=== PATIENT | female | born 1940 | race Caucasian/White ===

== ENCOUNTER 2016-05-19 08:33 | Emergency (ER) | payer OTHER ==
[2016-05-19 09:05] VITALS: BP 101/53
--- NOTE | 2016-05-19 09:18 | UC ---
Lower Extremity/Ankle HPI - HPI Summary HPI Summary: Slipped on wet floor and fell two days ago. "I banged my shoulder on the counter ... 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 Was prescribed hydrocodone. Patient did not have foot examined because she was most concerned about shoulder. Left lateral foot pain aggravated by walking. Swelling to top of foot. Mild point tenderness. Pain at 5th metatarsal, hurts some with bearing weight. Here with her Randy. They are both very active. She is here mainly to make sure it is safe for her to be ambulatory. Does have h/o remote ankle frx on left with pin removed 3 wks ago. feels fine o/w. - History of Current Complaint Chief Complaint: UCLowerExtremity Stated Complaint: LEFT FOOT PAIN Time Seen by Provider: 05/19/16 08:37 - Allergies/Home Medications Allergies/Adverse Reactions: Allergies Allergy/AdvReac Type Severity Reaction Status Date / Time Crystaline Sulfa AdvReac "As a Uncoded 05/19/16 08:45 child ... cut up my kidneys" PMH/Surg Hx/FS Hx/Imm Hx Previously Healthy: Yes Cardiovascular History Of: Reports: Hypertension Cancer History Of: Denies: Breast Cancer - Surgical History Surgical History: Yes Surgery Procedure, Year, and Place: left ankle and 01/2016 to have screw removed; b/l shoulder replaced, left hip; left wrist plate; pelvic fxs with metal - Family History Known Family History: Positive: Hypertension Negative: Cardiac Disease, Diabetes - Social History Alcohol Use: None Substance Use Type: None Smoking Status (MU): Never Smoked Tobacco - Immunization History Most Recent Influenza Vaccination: Current for the Review of Systems Constitutional: Negative Skin: Negative Eyes: Negative ENT: Negative Respiratory: Negative Cardiovascular: Negative Gastrointestinal: Negative Genitourinary: Negative Motor: Negative Neurovascular: Negative Musculoskeletal: Other: - see above. Neurological: Negative Psychological: Negative All Other Systems Reviewed And Are Negative: Yes Physical Exam Triage Information Reviewed: Yes Appearance: Well-Appearing, No Pain Distress, Well-Nourished - very pleasant. Vital Signs: Initial Vital Signs Temp 98.8 F 05/19/16 08:40 Pulse 64 05/19/16 08:40 Resp 16 05/19/16 08:40 BP 101/53 05/19/16 08:40 Pulse Ox 97 05/19/16 08:40 Vital Signs Reviewed: Yes Eye Exam: Normal ENT Exam: Normal Neck exam: Normal Respiratory: Positive: Lungs clear, No respiratory distress Cardiovascular Exam: Normal Cardiovascular: Positive: RRR, No Murmur, Pulses Normal Abdominal Exam: Normal Abdomen Description: Positive: Nontender, Soft Musculoskeletal: Positive: Other: - left foot with mild tenderness over mid 5th dorsal metatarsal. no plantar or lateral tenderness. CR brisk, sensation intact. Good ROM. no swelling apparent. Neurological Exam: Normal Psychological Exam: Normal Skin Exam: Normal Lower Extremity Course/Dx - Course Course Of Treatment: xray left foot - OA, ostepenia. re-xray at 2 wks if still with pain. no frx evident at this time. reviewed this with them. - Differential Dx/Diagnosis Differential Diagnosis/HQI/PQRI: Fracture (Closed), Sprain, Strain, Tendonitis Provider Diagnoses: left foot sprain Discharge - Discharge Plan Condition: Stable Disposition: HOME Patient Education Materials: Foot Sprain (ED) Referrals: González Randhawa MD [Primary Care Provider] - Additional Instructions: You can keep your 10 day f/u with ortho at [facility]. We discussed xray report and have printed a copy for you. We also made a CD with the images for you to take with you. xrays should be repeated if symptoms increase or persist. Ice, rest and avoid excessive activity until pain resolves. Use a firm soled shoe.
--- NOTE | 2016-05-19 09:23 | RAD ---
HISTORY: Fall, left fifth metatarsal pain COMPARISONS: None VIEWS: 3, Frontal, lateral, and oblique views of the left foot FINDINGS: BONE DENSITY: There is diffuse osteopenia. BONES: There is no displaced fracture. JOINTS: There is advanced osteoarthritis of the midfoot and hindfoot and ankle. ALIGNMENT: There is no dislocation. SOFT TISSUES: Unremarkable. OTHER FINDINGS: None. IMPRESSION: 1. OSTEOPENIA. 2. ADVANCED OSTEOARTHRITIS. 3. NO ACUTE OSSEOUS INJURY. THE DEGREE OF OSTEOPENIA MAY MAKE A NONDISPLACED FRACTURE RADIOGRAPHICALLY OCCULT. IF SYMPTOMS PERSIST, RECOMMEND REPEAT IMAGING
== END 2016-05-19 09:32 | disposition home or self-care (01) ==
LOC: UCCORT 08:33
DX: S93.602A Unspecified sprain of left foot, initial encounter (principal); W01.0XXA Fall on same level from slipping, tripping and stumbling without subsequent striking against object, initial encounter; Y92.9 Unspecified place or not applicable; M85.872 Other specified disorders of bone density and structure, left ankle and foot; M19.072 Primary osteoarthritis, left ankle and foot; Z88.2 Allergy status to sulfonamides; I10 Essential (primary) hypertension
CPT/HCPCS: 99211; G0463

== ENCOUNTER 2017-11-25 15:35 | Emergency (ER) | payer MEDICARE, OTHER ==
[2017-11-25 16:03] VITALS: BP 97/51
--- NOTE | 2017-11-25 16:37 | UC ---
General HPI - HPI Summary HPI Summary: Patient presents to urgent care with her . On 11/23, patient tripped on her dog. Patient sustained a nondisplaced acetabular fracture of her right hip. Patient was initially seen at [facility] and then transferred to [facility]. Patient was seen by corrections specialist there. Patient was discharged home. Patient was instructed to be minimal to no weightbearing. Patient was given prescription for Lortab 9 tablets. Patient's her to take one tablet every 8 hours. Patient was instructed to follow-up with primary care provider for analgesia and pain control. Patient states she has taken the hydrocodone 2 tablets in the morning and 2 tablets at night. Patient states she gets relief but that when it wears off she is in significant pain. Patient called her primary care office today and they be unable to prescribe her anything more. Patient has used the 9 tablets finish them last night. Patient did take 2 Tylenol this morning as well as 2 ibuprofen with mild improvement. Patient denies any numbness or tingling. No pain in calf. Patient came to urgent care desperation for analgesia control. Patient does take stool softeners routinely for constipation which is well-controlled at this time. Patient does take tramadol for sleeping at night. Patient has previously taken Percocet. Patient has a history of bilateral shoulder replacements, left carpal tunnel, and other surgeries requiring narcotics. Patient states she tolerates them well. Without any other complaints. Patient uses a walker to pivot to the bathroom. Patient does have crutches at home but has not tried using them. Patient's medications and discharge paperwork from [facility] reviewed I spoke with pharmacy and confirm the prescription and 9 Dispense without refills. I spoke with patient's PCP and confirmed the appointment 3 PM Saturday and no earlier appointments. - History of Current Complaint Chief Complaint: UCTrauma Stated Complaint: FRACTURE RT HIP/ PAIN MEDS Time Seen by Provider: 11/25/17 15:46 Hx Obtained From: Patient Onset/Duration: Lasting Days Onset Severity: Mild Current Severity: Mild Pain Intensity: 4 - Allergy/Home Medications Allergies/Adverse Reactions: Allergies Allergy/AdvReac Type Severity Reaction Status Date / Time Crystaline Sulfa AdvReac "As a Uncoded 05/19/16 08:45 child ... cut up my kidneys" Home Medications: Home Medications Atorvastatin* [Lipitor 20 MG*] 20 mg PO DAILY 11/25/17 [History Confirmed ] Ibuprofen 600 mg PO Q8H 11/25/17 [History Confirmed 11/25/17] Metoprolol Succinate [Toprol Xl] 25 mg PO DAILY 11/25/17 [History Confirmed ] PMH/Surg Hx/FS Hx/Imm Hx Previously Healthy: Yes - Surgical History Surgical History: Yes Surgery Procedure, Year, and Place: left ankle and 01/2016 to have screw removed; b/l shoulder replaced, left hip; left wrist plate; pelvic fxs with metal - Family History Known Family History: Positive: Hypertension Negative: Cardiac Disease, Diabetes - Social History Occupation: Retired Lives: With Family Alcohol Use: None Substance Use Type: None Smoking Status (MU): Never Smoked Tobacco - Immunization History Most Recent Influenza Vaccination: Current for the Review of Systems Constitutional: Negative Musculoskeletal: Other: - Right hip pain poorly controlled All Other Systems Reviewed And Are Negative: Yes Physical Exam - Summary Physical Exam Summary: Vital Signs Reviewed: Yes A+Ox3, no distress Eyes: Conjunctiva Clear ENT: Hearing grossly normal neck: supple Respiratory: Positive: No respiratory distress, No accessory muscle use Cardiovascular: skin color reflect adequate perfusion 2+ DP, PT Musculoskeletal Exam: + SLE with mild discomfort + flex/ext knee, ankle +great toe extension. no calf tenderness Neurological: Positive: Alert, ambulatory without difficulty + gross sensation throughout Psychological: Positive: Normal Response To Family Skin: Positive: no rash, no ecchymosis Triage Information Reviewed: Yes Vital Signs: Initial Vital Signs Temp 98.8 F 11/25/17 15:54 Pulse 80 11/25/17 15:54 Resp 16 11/25/17 15:54 BP 97/51 11/25/17 15:54 Pulse Ox 95 11/25/17 15:54 Course/Dx - Course Course Of Treatment: Patient recently sustained a nondisplaced acid to the fracture of the right hip. Patient was discharged with 9 tablets of Lortab. Patient unable to get an appointment with her primary until Saturday. Patient has completed the Lortab. This provided adequate pain control however she has not left. Patient's primary unwilling to write prescription without seeing her. Patient came here for assistance. I had a very long discussion with patient and her regarding narcotic specifically opiates. Recommend the patient take 2 tablets every 8 hours. 2 tablets equates to 2 Lortab, 1 Lortab 1 [id number] Tylenol, or to Tylenol. Recommended patient also takes 600 mg of Motrin every 6-8 hours. Patient does take a baby aspirin but no other anticoagulants or NSAIDs. Recommend patient take with food. Discussed extensively with patient cannot take narcotics while taking tramadol. Also discussed with patient about sedative effects of narcotics. Patient will also be given a prescription for narcan. Consulted [facility]. Patient did have Percocet approximately 6 months ago after she injured her hand. Discussed with patient about stool softeners related to narcotic use. Discussed with patient about using a pillow to support under her knees and between her knees and she's on her side. Recommended patient try crutches. Patient comfortable in agreement with plan. Patient to go to the emergency Department with any questions or concerns. Patient and spouse comfortable and in full agreement with plan. Stated understanding. Pt given a prescription for 20 tablets of [place]. - Differential Dx - Multi-Symptom Provider Diagnoses: acute pain. subacute acetabular fracture, right Discharge - Sign-Out/Discharge Documenting (check all that apply): Patient Departure - Discharge Plan Condition: Stable Disposition: HOME Prescriptions: Hydrocodone/Acetaminophen [Hydrocodone-Acetamin 5-325 mg] 1 - 2 each PO Q8HR PRN #20 tablet MDD 6 PRN Reason: Severe Pain Naloxone Nasal Western* [Narcan Nasal Western] 4 mg NASAL ONCE PRN #1 nasal.spr PRN Reason: Sedation Patient Education Materials: Pain Management (ED), Hip Fracture (ED) Referrals: González Randhawa MD [Primary Care Provider] - (11/27/2017 at 3pm) Additional Instructions: - It is recommended that you take 2 tablets containing Tylenol every 8 hours. This means: 2 prescription hydrocodone OR one prescription hydrocodone +1 Tylenol OR 2 Tylenol tablets - Hydrocodone can cause sedation. It is recommended you do not take this medication at the same time you take trazodone - You have been given a prescription for Narcan. This medication reverses the sedating effects of hydrocodone. Your family member should medians insert an know how to use this. If you become sedated from this medication it is recommended the medication be used 911 be called - hydrocodone can cause constipation - use stool softners as needed - It is recommended you take ibuprofen (Motrin, Advil) 600 mg every 6-8 hours. Take with food to prevent stomach ulcers, irritation, and bleeding - It is recommended you try ambulation with crutches so that or not putting weight directly on this leg. - It is recommended that you place a pillow underneath her knees that are on her back or between her knees appear underside to help relieve some pressure from the hip and the muscles - Gently moved your knees and pump your ankles up-and-down several times a day and both legs to prevent blood clots - Keep your appointment with her doctor as scheduled at 3 PM on Saturday. Your doctor has placed you on a cancellation list and if they can see you sooner the office will call you - Contact her doctor call 911 or go to the emergency Department with any questions or concerns - Billing Disposition and Condition Condition: STABLE Disposition: Home
== END 2017-11-25 16:44 | disposition home or self-care (01) ==
LOC: UCCORT 15:35
DX: S32.401A Unspecified fracture of right acetabulum, initial encounter for closed fracture (principal); W01.0XXA Fall on same level from slipping, tripping and stumbling without subsequent striking against object, initial encounter; Y92.9 Unspecified place or not applicable
CPT/HCPCS: 99212; G0463

== ENCOUNTER 2018-09-27 15:39 | Emergency (ER) | payer OTHER ==
[2018-09-27 16:24] VITALS: BP 121/53
--- NOTE | 2018-09-27 16:40 | UC ---
General HPI - HPI Summary HPI Summary: for the past 2 weeks, the pt has noted some discomfort to her upper anterior knee and a sense of weakness to that area with walking. today, she had a tiny slip with her L leg while getting out of the show and noted a pop in the same knee. she had sudden nausea and light headed. she has ongoing anterior knee pain and swelling. - History of Current Complaint Chief Complaint: UCLowerExtremity Stated Complaint: LT KNEE INJURY Time Seen by Provider: 09/27/18 16:29 Hx Obtained From: Patient Onset/Duration: Sudden Onset Timing: Constant Pain Intensity: 7 Character: extending the leg and keeping it immobile. Aggravating: walking and movement. Associated Signs & Symptoms: Positive: Edema. Negative: Fever - Allergy/Home Medications Allergies/Adverse Reactions: Allergies Allergy/AdvReac Type Severity Reaction Status Date / Time Crystaline Sulfa AdvReac Unknown "As a Uncoded 09/27/18 16:08 child ... cut up my kidneys" Home Medications: Home Medications Calcium Citrate TAB* [Citracal TAB*] 200 mg PO BID 09/27/18 [History Confirmed 09/27/18] Naproxen Sodium [Aleve] 440 mg PO PRN 09/27/18 [History] PMH/Surg Hx/FS Hx/Imm Hx Endocrine History: Dyslipidemia Cardiovascular History: Hypertension Psychological History: Depression - Surgical History Surgical History: Yes Surgery Procedure, Year, and Place: left ankle and 01/2016 to have screw removed; b/l shoulder replaced, left hip; left wrist plate; pelvic fxs with metal. appendectomy - Family History Known Family History: Positive: Hypertension Negative: Cardiac Disease, Diabetes - Social History Lives: With Family Alcohol Use: None Substance Use Type: None Smoking Status (MU): Never Smoked Tobacco - Immunization History Most Recent Influenza Vaccination: Current for the Vaccination Up to Date: Yes Review of Systems All Other Systems Reviewed And Are Negative: No Constitutional: Negative: Fever Motor: Positive: Decreased ROM - L knee Musculoskeletal: Positive: Edema - L knee Neurological: Negative: Paresthesia, Numbness Physical Exam Triage Information Reviewed: Yes Appearance: Well-Appearing Vital Signs: Initial Vital Signs Temp 98.4 F 09/27/18 16:14 Pulse 62 09/27/18 16:14 Resp 16 09/27/18 16:14 BP 121/53 09/27/18 16:14 Pulse Ox 96 09/27/18 16:14 Vital Signs Reviewed: Yes Eyes: Positive: Conjunctiva Clear Respiratory: Positive: No respiratory distress Cardiovascular: Positive: RRR Musculoskeletal: Positive: Other: - LLE: hip non tender and limited rom from prior surgery per pt. knee has suprapatellar and anterior medial knee swelling. she is tender to the anterior knee and medial joint line. She is able to flex the knee but active extension is limited by pain and the limited rom in L hip( per pt). I am unable to fully assess the quadriceps. Below the knee is non tender and gross s/v/m functions are intact. Neurological: Positive: Alert Psychological: Positive: Normal Response To Family, Age Appropriate Behavior Skin Exam: Normal Diagnostics - Radiology No standard instances Radiology Interpretation Completed By: Radiologist - IMPRESSION: Chondrocalcinosis. There is suggestion of a fracture of the medial tibial plateau. Degenerative changes of the patellofemoral joint is noted. Course/Dx - Course Course Of Treatment: pt has taken hydrocodone in past for multiple surgical procedures and statse she takes up to 2 with no problems. - Differential Dx - Multi-Symptom Differential Diagnoses: Other - L KNEE EFFUSION AND TIBIAL PLATEAU FX ON XRAY. PT NOT A CANDIDATE FOR CRUTCHES AND HAS WHEELED WALKER WITH BRAKES WHICH SHE WILL USE. - Diagnoses Provider Diagnosis: Tibial plateau fracture, left Discharge - Sign-Out/Discharge Documenting (check all that apply): Patient Departure All imaging exams completed and their final reports reviewed: Yes - Discharge Plan Condition: Stable Disposition: HOME Prescriptions: Hydrocodone/Acetaminophen [Hydrocodone-Acetamin 5-325 mg] 1 each PO Q6H PRN #15 tablet MDD 4 PRN Reason: Pain Patient Education Materials: Leg Fracture (ED) Additional Instructions: FOLLOW UP WITH YOUR ORTHOPEDIST AT [facility] THIS COMING SATURDAY. USE THE IMMOBILER AT ALL TIMES. USE YOUR WALKER AT ALL TIMES. - Billing Disposition and Condition Condition: STABLE Disposition: Home
[2018-09-27] MEDS ORDERED: HYDROcodone/ACETAMIN 5-325 MG* 1 TAB PO ONE ×2 (16:43→18:12)
== END 2018-09-27 18:37 | disposition home or self-care (01) ==
LOC: UCCORT 15:39
DX: S82.142A Displaced bicondylar fracture of left tibia, initial encounter for closed fracture (principal); I10 Essential (primary) hypertension; Z88.2 Allergy status to sulfonamides; W18.40XA Slipping, tripping and stumbling without falling, unspecified, initial encounter; Y92.9 Unspecified place or not applicable
CPT/HCPCS: 99213; G0463

== ENCOUNTER 2018-12-10 12:07 | Emergency (ER) | payer OTHER | END 2018-12-10 12:08 | disposition left against medical advice (07) | LOC: UCCORT 12:07 | DX: R41.0 Disorientation, unspecified (principal); Z53.21 Procedure and treatment not carried out due to patient leaving prior to being seen by health care provider ==